=== PATIENT | female | born 1950 | race Caucasian/White ===

== ENCOUNTER → 2017-07-12 | Outpatient (CLI) | payer OTHER | LOC: ULTRA 14:20 | DX: H93.A3 Pulsatile tinnitus, bilateral (principal) ==

== ENCOUNTER → 2017-09-13 | Outpatient (CLI) | payer OTHER ==
[2017-09-13 16:00] LABS: CALCIUM 9.1 mg/dL (8.5-10.1); CREATININE 0.8 mg/dL (0.6-1.0)
== END ==
LOC: CAT 15:28 → LABMALL 15:28
PROVIDERS: Nurse Practitioner
DX: K57.30 Diverticulosis of large intestine without perforation or abscess without bleeding (principal); K57.32 Diverticulitis of large intestine without perforation or abscess without bleeding; M47.896 Other spondylosis, lumbar region

== ENCOUNTER → 2019-12-12 | Outpatient (CLI) | payer OTHER | LOC: CAT 10:58 | PROVIDERS: ATTEND Family Medicine | DX: J34.2 Deviated nasal septum (principal); J34.89 Other specified disorders of nose and nasal sinuses; J01.90 Acute sinusitis, unspecified ==

== ENCOUNTER → 2020-10-14 | Outpatient (CLI) | payer OTHER | LOC: RAD 10:41 | PROVIDERS: ATTEND Family Medicine | DX: R10.11 Right upper quadrant pain (principal) ==